=== PATIENT | female | born 1960 | race Native Hawaiian/Other Pacific Islander ===

== ENCOUNTER 2021-12-03 11:27 | Emergency (ER) | payer BC ==
[~2021-12-03] VITALS: Ht 144.8 cm; Wt 68.0 kg
[2021-12-03 12:08] LABS: PLATELET COUNT 178 K/uL (152-353)
[2021-12-03 12:14] LABS: POTASSIUM 3.6 mmol/L (3.6-5.2)
[2021-12-03 12:24] LABS: PARTIAL THROMBOPLASTIN TIME 26.3 SECONDS (24.5-33.6)
[2021-12-03 13:40] VITALS: BP 117/57; TEMP 97.8
== END 2021-12-03 13:40 | disposition home or self-care (01) ==
LOC: ED 11:27
PROVIDERS: Hospitalist
DX: R07.89 Other chest pain (principal); F41.8 Other specified anxiety disorders
CPT/HCPCS: 36415; 80053; 82550; 83880; 84484; 85027; 85379; 85610; 85730; 93005; 96374; 96375; 99284; J1885; J2405

== ENCOUNTER 2022-11-17 10:14 | Day surgery (SDC) | payer BC ==
[~2022-11-17] VITALS: Ht 154.9 cm; Wt 79.4 kg
== END 2022-11-17 12:35 | disposition home or self-care (01) ==
LOC: OR 10:14
PROVIDERS: ATTEND Internal Medicine Gastroenterology
PROC: 0DBN8ZZ Excision of Sigmoid Colon, Via Natural or Artificial Opening Endoscopic (ICD-10-PCS; principal; 2022-11-17)
DX: C18.7 Malignant neoplasm of sigmoid colon (principal); D12.5 Benign neoplasm of sigmoid colon; K63.5 Polyp of colon; K57.30 Diverticulosis of large intestine without perforation or abscess without bleeding; K64.8 Other hemorrhoids; Z80.0 Family history of malignant neoplasm of digestive organs; Z87.898 Personal history of other specified conditions
CPT/HCPCS: J2704; J7120